=== PATIENT | male | born 1995 | race Caucasian/White ===

== ENCOUNTER 2016-08-15 21:18 | Emergency (ER) | payer SELFPAY ==
[~2016-08-15] VITALS: Ht 188 cm; Wt 54.5 kg
[2016-08-15 21:21] VITALS: BP 135/91; PULSE 112; RESP 16; O2SAT 98
--- NOTE | 2016-08-16 00:09 | ED.REPORT ---
HPI-Back Pain Under 40 Date of Service Aug 16, 2016 ED Provider: Dr. Gold Lucia The patient is a 21 year old male who presents to the ED due to right hip and right knee pain since having chiropractic work done two days ago. The initial leg pain onset was 2 weeks ago, was exacerbated by the chiropractor two days ago and has since spread to his back. He denies bowel and bladder incontinence. Nursing Notes Stated Complaint: LWR BACK PAIN Chief Complaint: Back Pain or Injury Nursing Notes Reviewed: Yes Allergies: Coded Allergies: No Known Allergies (Unverified , 08/15/16) General Time Seen by MD: 00:09 Chief Complaint Back pain Hx Obtained From: Patient Arrived By: Walk-in Sudden in Onset?: Yes Symptom Duration: 2 days Location: : Spinal lumbar area Quality: Painful Radiation: : Does not radiate Recent Healthcare: Recent doctor visit Similar Sx Previous: Yes Past Medical History Past Medical History denies Past Surgical History denies Smoking History Unknown if Ever Smoker Social History Other Social History: Good social support, Local resident Ambulatory Status Independent Review of Systems Male: Denies Incontinence Musculoskeletal: Reports: Back pain, Extremity pain (right leg), Joint pain ( right knee) Complete sys rev & neg: except as marked. Physical Exam Initial Vital Signs Vital Signs (First) Date Time Temp Pulse Resp B/P Pulse Ox O2 Delivery O2 Flow Rate FiO2 08/15/16 21:21 36.0 112 16 135/91 98 Room Air Initial VS: Reviewed Head / Eyes: Atraumatic, Normocephalic, PERRL ENT: Mucous membranes moist, Conjunctiva normal, No scleral icterus Neck: Supple, Non-tender, Full range of motion Respiratory: Breath sounds normal, Clear to auscultation, No respiratory distress Cardiovascular: Heart sounds normal, Intact distal pulses Abdomen / GI: Soft, Non-tender, No guarding, No rebound, No distention Skin: Warm, Dry, No cyanosis Psychiatric: Mood/affect normal, Behavior normal, Normal thought content General/Constitutional: Awake, Alert, No acute distress, Well appearing, Well developed, Cooperative, Not toxic appearing Back: No midline vertebral tend, No muscle spasm, No CVA tenderness Flank / Spine / Paraspinal: Positive: SI joint tender L, Negative: SI joint tender R Neurologic: Oriented X3, Speech NL, No motor deficits, No sensory deficits, CN II - XII intact Right Knee: Positive: Tenderness present... (Mild) pain with motion in right knee Interpretation & Diagnostics Interpretation & Diagnostics: X-Ray Interpretation Xray Interpretation: RIGHT KNEE X-RAY IMPRESSION: normal X-Ray Ordered: Knee right Interpretation / Wet Read by: Interpret - Radiologist Interpretation: Normal exam Xray Interpretation: LUMBAR SPINE X-RAY IMPRESSION: normal Interpretation / Wet Read by: Interpret - Radiologist Interpretation: Normal exam Re-Eval/Medical Decision Med Decision/Clinical Course I performed x-rays because this gentleman had chiropractic manipulation that seemed to proceed the pain. There is no evidence of fracture. He did better in a knee immobilizer and crutches. I think immobilizing his knee is going to help his hip as well. I think the hip is why he threw his low back out. Either way short course of [place] and Naprosyn prescribed for pain. Recommend outpatient follow-up. Routine orthopedic and opiate warnings were given. Counseled Regarding: Diagnosis, Lab results, Need for follow-up, When/why to return to ED Discharge & Departure Impression: Primary Impression: Lumbosacral strain Encounter type: initial encounter Qualified Code: S39.012A - Strain of muscle, fascia and tendon of lower back, initial encounter Additional Impression: Knee pain, acute Laterality: right Qualified Code: M25.561 - Pain in right knee Disposition: Home All VS Reviewed: Yes Condition: Stable Patient Instructions: Crutch Instructions (ED), Knee Sprain (ED), Low Back Strain (ED) Additional Instructions: I did not appreciate a fracture and your x-rays. I suspect that you have a strain or possible soft tissue injury of the right knee and low back. Use the crutches and use the knee immobilizer as instructed. Take Naprosyn twice daily for moderate pain. Take one [place] every 6 hours as needed for severe pain. Do not drive or consume acetaminophen or any sedating substances will taking the [place]. The [place] can be habit forming so use it sparingly. Contact the referral clinics for a follow-up appointment. Return if you any problems or any worsening symptoms. If the pain persists beyond 7-10 days of immobilization you may need an MRI. Discussed this at your follow-up appointment. Referrals: [facility] (PCP) Scot Watt DO [facility] Scribe Attestation Portion of this note were transcribed by Kim Avelar. I, Dr. Lucia, personally performed the history, physical exam, and medical decision-making: I reviewed and confirmed the accuracy for the information in the transcribed note. Signed by: samira Krishnan, 08/16/16 0300 copies to: Scot Watt DO; [facility] Gold Lucia DO Aug 16, 2016 00:09 Kim Avelar Aug 16, 2016 00:33
[2016-08-16] MEDS ORDERED: _HYDROcodone/APAP 5-325 mg Tablet PO PRN (02:00)
[2016-08-16 02:36] VITALS: PULSE 100; RESP 15; O2SAT 99
--- NOTE | 2016-08-16 09:33 | DRSVH ---
PROCEDURE: X-RAY LUMBAR SPINE, 2 OR 3 VIEW INDICATIONS: pain, chiropractic manipulation TECHNIQUE: 3 views of the lumbar spine were acquired. COMPARISON: None. FINDINGS: Bones: 5 [id number] vertebrae are present. There is normal bony alignment. No vertebral body c ompression fractures. No suspicious bony lesions. Soft tissues: Overlying bowel gas pattern is normal. No suspicious soft tissue calcifications. IMPRESSION: No displaced fracture seen. If there is continued pain, followup exam or additional sujit ging such as MRI or CT could be performed for further assessment. Dictated by: Gama Denson [facility] Interpreted: Kelsie Crouch MD on 08/16/2016 at 9:32 Transcribed by: NEAL on 08/16/2016 at 9:33 Approved by: Kelsie Crouch M.D. on 08/18/2016 at 16:03
--- NOTE | 2016-08-16 09:33 | DRSVH ---
PROCEDURE: X-RAY RIGHT KNEE, THREE VIEWS ([id number]) INDICATIONS: pain, chiropractic manipulation TECHNIQUE: 3 views of the knee were acquired. COMPARISON: None. FINDINGS: Bones: No fractures or dislocations. No suspicious bony lesions. Soft tissues: No joint effusion. No suspicious soft tissue calcifications. IMPRESSION: No displaced fracture seen. If there is continued pain, followup exam or additional sujit ging such as MRI or CT could be performed for further assessment. Dictated by: Gama Denson Tammie Interpreted: Kelsie Crouch MD on 08/16/2016 at 9:32 Transcribed by: NEAL on 08/16/2016 at 9:32 Approved by: Kelsie Crouch M.D. on 08/18/2016 at 16:03
== END 2016-08-16 01:55 | disposition home or self-care (01) ==
LOC: SED 21:18
DX: S39.012A Strain of muscle, fascia and tendon of lower back, initial encounter (principal); M25.561 Pain in right knee; M25.551 Pain in right hip; X50.1XXA Overexertion from prolonged static or awkward postures, initial encounter; Y93.89 Activity, other specified; Y92.531 Health care provider office as the place of occurrence of the external cause; Y99.8 Other external cause status